=== PATIENT | female | born 2000 | race Caucasian/White ===

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

== ENCOUNTER 2018-03-06 20:15 | Emergency (ER) | payer OTHER ==
[~2018-03-06] VITALS: Ht 157.5 cm; Wt 50.2 kg
[~2018-03-06 20:15] MED LIST changes: -ALBU8.5H3 INH; +ALBU8.5H8 INH; -AMO500 PO; +AMOX500C2 PO; +IBUP-1561 PO; -IBUP400T22 PO; +NAPR-688 PO
[2018-03-06 20:22] VITALS: BP 103/56; PULSE 83; RESP 18; Ht 157.5 cm; Wt 50.2 kg
[2018-03-06] MEDS ORDERED: AMOX1TAB10 PO (21:44)
--- NOTE | 2018-03-06 21:44 | ERD ---
ER Documentation Chief Complaint Chief Complaint sore throat x 3 days HPI This is a 17-year-old female who presents emergency department with complaints of sinus pain, sore throat for about 3 days. LMP: A week ago. Denies possibility for . Denies headache, head injury, loss of consciousness, dizziness, neck pain, neck stiffness, difficulty swallowing, difficulty breathing lying flat, shoulder pain, chest pain, back pain, abdominal pain, nausea, vomiting, constipation, diarrhea, urinary symptoms, or possibility being , loss of bowel and bladder control, trauma, injury, falls, difficulty walking due to pain, numbness or tingling sensation, calf pain, recent travel, recent major surgery in the last 3 weeks, calf pain, recent long travel, recent exposure to any illness, recent antibiotic use in the last 3 months, fever, chills, seizures. Past medical history: Denies. Surgical history: Denies. Social: Denies smoking, use of alcoholic beverages, use of illegal drugs. ROS All systems reviewed and are negative except as per history of present illness. Medications Home Meds Active Scripts Benzonatate* (Tessalon Perle*) 100 Mg Capsule, 100 MG PO Q8H PRN for COUGH, #15 CAP Prov:PEPEJAVIERCUONG Jody 03/06/18 Acetaminophen* (Tylophen*) 500 Mg Capsule, 1 CAP PO Q6H PRN for PAIN AND OR ELEVATED TEMP, #20 CAP Prov:EPPEJAVIERBAYRNOKAVITA Jody 03/06/18 Ibuprofen* (Motrin*) 600 Mg Tab, 600 MG PO Q6H PRN for PAIN AND OR ELEVATED TEMP, #30 TAB Prov:PEPEJAVIERBAYRONKAVITA Jody 03/06/18 Amoxicillin/Potassium Clav (Amox-Clav 875-125 mg Tablet) 875-125 mg Tab, 1 TAB PO BID for 10 Days, #20 TAB Prov:TOBINLULÚCUONG 03/06/18 Nitrofurantoin Monohyd Macrocr* (Macrobid*) 100 Mg Capsr, 100 MG PO BID for 3 Days, CAP Prov:GREENINGRID DO 10/08/16 Cephalexin* (Keflex*) 500 Mg Capsule, 500 MG PO TID for 3 Days, CAP Prov:INGRID ZAFAR DO 10/08/16 Naproxen* (Naproxen*) 500 Mg Tablet, 500 MG PO BID PRN for PAIN, #20 TAB Prov:INGRID ZAFAR DO 10/08/16 Nitrofurantoin Monohyd Macrocr* (Macrobid*) 100 Mg Capsr, 100 MG PO BID for 7 Days, CAP Prov:CURT OLIVA PA-C 09/28/16 Phenazopyridine Hcl* (Pyridium*) 200 Mg Tab, 200 MG PO TID PRN for URINARY PAIN for 2 Days, #6 TAB Prov:CURT OLIVA PA-C 09/28/16 Albuterol Sulfate* (Proair HFA*) 8.5 Gm Hfa.aer.ad, 2 PUFF INH Q4H PRN for WHEEZING AND SOB, #1 INHALER Prov:DEVORA HERNANDEZ NP 03/29/16 Ibuprofen* (Motrin*) 600 Mg Tab, 600 MG PO Q6H PRN for PAIN AND OR ELEVATED TEMP, #30 TAB Prov:DEVORA HERNANDEZ NP 03/29/16 Cetirizine Hcl* (Zyrtec*) 10 Mg Capsule, 10 MG PO DAILY, #30 TAB.CHEW Prov:DEVORA HERNANDEZ NP 03/29/16 Coffhtduujs-H-Hbdcpjgxrf Hb* (Guaifenesin* DM Syrup) 120 Ml Syrup, 10 ML PO Q4H PRN for COUGH, #120 ML Prov:DEVORA HERNANDEZ NP 03/29/16 Sulfamethoxazole-Trimethoprim* (Bactrim* DS) 800-160 Mg Tab, 1 TAB PO BID for 7 Days, TAB Prov:VIRY GARCIA MD 02/24/16 Ibuprofen* (Motrin*) 400 Mg Tab, 400 MG PO Q6, #15 TAB Prov:VIRY GARCIA MD 02/24/16 Sulfamethoxazole-Trimethoprim* (Bactrim* DS) 800-160 Mg Tab, 1 TAB PO DAILY for 5 Days, #10 TAB Prov:MER OBRIEN PA-C 01/30/16 Cephalexin* (Keflex*) 500 Mg Capsule, 500 MG PO Q6 for 7 Days, #28 CAP Prov:MER OBRIEN PA-C 01/30/16 Erythromycin* (Erythromycin* Ophthalmic) 1 Applic Oint, 1 APPLIC LEFT EYE QID for 7 Days, EA Prov:CHRISTOPHE CERVANTES MD 12/22/15 Erythromycin* (Erythromycin* Ophthalmic) 1 Applic Oint, 1 APPLIC RIGHT EYE QID for 7 Days Prov:CHRISTOPHE CERVANTES MD 12/22/15 Acetaminophen* (Tylophen*) 500 Mg Capsule, 1 CAP PO Q6H PRN for PAIN AND OR ELEVATED TEMP, #20 CAP Prov:MARIA DE JESUS SANCHEZ PA-C 09/14/15 Ibuprofen* (Motrin*) 400 Mg Tab, 400 MG PO Q6, #20 TAB Prov:MARIA DE JESUS SANCHEZ PA-C 09/14/15 Amoxicillin* (Amoxicillin*) 500 Mg Cap, 500 MG PO TID for 10 Days, CAP Prov:MARIA DE JESUS SANCHEZ PA-C 09/14/15 Hydrocodone/Homatropine Mbr* (Hycodan* Liq) 5 Ml Syrup, 5 ML PO Q4H PRN for COUGH for 5 Days, ML Prov:CASS BROWN MD 01/24/15 Ibuprofen* (Ibuprofen*) 600 Mg Tablet, 600 MG PO Q6H PRN for PAIN, #30 TAB Prov:CASS BROWN MD 01/24/15 Fluticasone Propionate (Flonase Allergy Relief) 9.9 Ml [place].susp, 9.9 ML NS BID PRN for NASAL CONGESTION for 7 Days Prov:CASS BROWN MD 01/24/15 Cephalexin* (Keflex*) 500 Mg Capsule, 500 MG PO QID for 7 Days, CAP Prov:SHWETHA CARO PA-C 10/04/14 Sulfamethoxazole-Trimethoprim* (Bactrim* DS) 800-160 Mg Tab, 1 TAB PO BID for 7 Days, TAB Prov:SHWETHA CARO PA-C 10/04/14 Allergies Allergies: Coded Allergies: No Known Allergy (Unverified , 03/06/18) PMhx/Soc History of Surgery: No Anesthesia Reaction: No Hx Neurological Disorder: No Hx Respiratory Disorders: No Hx Cardiac Disorders: No Hx Psychiatric Problems: No Hx Miscellaneous Medical Probl: No Hx Alcohol Use: No Hx Substance Use: No Hx Tobacco Use: No Physical Exam Vitals Vital Signs Date Temp Pulse Resp B/P (MAP) Pulse Ox O2 O2 Flow FiO2 Time Delivery Rate 03/06/18 99.1 83 18 103/56 98 20:22 (72) Physical Exam Const: No acute distress Head: Atraumatic Eyes: Normal Conjunctiva ENT: Normal External Ears, Nose and Mouth. There is frontal and maxillary sinus tenderness to palpation. Throat: Uvula is midline and nondisplaced. Tonsils are +2 bilaterally with redness but no exudate. Tolerating secretions. Patent airway. Neck: Full range of motion. No meningismus. No nuchal rigidity. No signs of meningeal irritation. Resp: Clear to auscultation bilaterally Cardio: Regular rate and rhythm, no murmurs Abd: Soft, non tender, non distended. Normal bowel sounds Skin: No petechiae or rashes Back: No midline or flank tenderness Ext: No cyanosis, or edema Neur: Awake and alert. No neurological deficits. Psych: Normal Mood and Affect Procedures/MDM Diagnostic tests: Clinical exam. Treatment: N/A. Re-evaluation: N/A. Differential diagnosis I have low suspicion for meningitis, sepsis, mastoiditis, peritonsillar abscess. Final diagnosis: Sinusitis. Tonsillitis. Prescription: Augmentin. Tylenol. Motrin. Follow-up with PCP in the next 24-48 hours. Come back here in the emergency department for any new symptoms or any worsening symptoms. All questions and concerns were answered. Patient and family members verbalized understanding and agreed with plan of care. Hemodynamically stable on discharge. Departure Diagnosis: Primary Impression: Sore throat Additional Impressions: Tonsillitis Sinusitis Condition: Stable Additional Instructions: Follow-up with PCP in the next 24-48 hours. Come back here in the emergency department for any new symptoms or any worsening symptoms. CUONG GAVIN Mar 06, 2018 21:43
[2018-03-06] MEDS ORDERED: ACET500C5 PO (21:45)
[2018-03-06] MEDS ORDERED: BENZ-6 PO (21:45)
[2018-03-06] MEDS ORDERED: IBUP-1542 PO (21:45)
== END 2018-03-06 22:14 | disposition home or self-care (01) ==
LOC: FTE 20:15
DX: J02.9 Acute pharyngitis, unspecified (principal); J03.90 Acute tonsillitis, unspecified; J32.9 Chronic sinusitis, unspecified
CPT/HCPCS: 99283